=== PATIENT | male | born 1990 | race African-American/Black ===

== ENCOUNTER 2020-02-18 13:27 | Emergency (ER) | payer OTHER, SELFPAY ==
[2020-02-18 13:46] VITALS: BP 134/84; PULSE 102; RESP 20; TEMP 36.4; O2SAT 97
--- NOTE | 2020-02-18 14:11 | ED.SKABFB ---
HPI - Skin/Abscess/Foreign Bdy General Chief complaint: Skin/Abscess/Foreign Body Stated complaint: bump on chest Source: patient Mode of arrival: ambulatory Limitations: no limitations History of Present Illness HPI narrative: This is a 29-year-old male presents with an abscess on his upper mid chest started Tuesday and has progressively worsened it is tender currently there is some minimal drainage patient tried to express some fluid himself with no relief of the of did fluid drainage, it is warm and tender to touch with chills no fevers no significant past medical history. complaint: abscess/boil Onset (ago): day(s) Tetanus up to date: no Location: chest Severity: moderate Quality: aching Pain Consistency: constant Related Data Allergies Allergy/AdvReac Type Severity Reaction Status Date / Time No Known Allergies Allergy Verified 02/18/20 14:12 Review of Systems Review of Systems: All systems reviewed & are unremarkable except as noted in HPI and below PMFSH Past Medical History Medical History Patient denies medical problems Social History Social History Gender identity (if verbalized by the patient): Male Exam Const: General: no acute distress and alert Orientation/consciousness: patient oriented x3 HENMT: Head: normal to inspection Eyes: Conjunctivae: conjunctivae normal Pupils: Equal, round and reactive pupils present EOM: EOMs intact bilaterally Neck: Neck: normal visual inspection, no lymphadenopathy and no meningeal signs Chest: Other: has a 4x4 fluctuant abscess mid upper chest area Resp: Effort & Inspection: normal respiratory effort Auscultation: clear to auscultation bilaterally Cardio: Rhythm: regular rhythm GI: Auscultation: normal bowel sounds : Testes: Testes normal Back/Spine/Pelvis: Back: no CVA tenderness Skin: General skin exam: normal color Wounds: wounds noted Neuro: General: patient oriented x3 and moves all extremities Course Course Emergency Course: area on the chest abscess was prepped with Betadine 3cc of lidocaine 1% injected and 11 blade scalpel used to make an incision to drain fluid / pus from his chest abscess patient tolerated procedure well with a culture obtained as well. Informed patient we will be giving him a update on his tetanus, and IM ceftriaxone injection. Vital Signs Vital signs: Vital Signs Temperature 36.4 C 02/18/20 13:46 Pulse Rate 102 H 02/18/20 13:46 Respiratory Rate 20 02/18/20 13:46 Blood Pressure 134/84 02/18/20 13:46 Pulse Oximetry 97 02/18/20 13:46 Temperature 36.4 C 02/18/20 13:46 Pulse Rate 102 H 02/18/20 13:46 Respiratory Rate 20 02/18/20 13:46 Blood Pressure 134/84 02/18/20 13:46 Pulse Oximetry 97 02/18/20 13:46 Procedures Abscess I/D chest: Date of Incision: 02/18/20 Time of Incision: 14:16 Local Anesthetic: lidocaine 1% Amount of anesthesia used (mL): 3 Technique: incised with #11 blade Amount of fluid expressed (mL): 10 Irrigation: No Packing used?: none I&D Results: Pus and Blood Complications: pain and bleeding Critical Care Time Critical Care Time Critical Care Time: No Discharge Plan Discharge Clinical Impression: Abscess of skin or subcutaneous tissue Patient Disposition: Home, Self-Care Condition: Stable Instructions: Antibiotic Form, Abscess (ED) Additional Instructions: Advised patient to take medicine as prescribed and follow-up with primary care physician within 2 weeks for further evaluation and treatment. Prescriptions: New amoxicillin-pot clavulanate [Augmentin] 500-125 mg tablet 1 tablet PO Q12H Qty: 20 RF: 0 naproxen 500 mg tablet 500 mg PO BID PRN (Reason: pain) Qty: 20 RF: 0 Follow-up/Referrals: UNKNOWN,DOCTOR [Primary Care Provider] - Time of
[2020-02-18] MEDS: cefTRIAXone 1 GM VIAL IM (14:22)
[2020-02-18] MEDS: NEOMYCIN/POLYMYXIN/BACITRACIN OINTMENT PACKET 1 PACKET TOPICAL (14:25)
[2020-02-18] MEDS: LIDOCAINE HCL 1% LOCAL INJ 20 ML VIAL (14:26)
[2020-02-18] MEDS: TETANUS,DIPHTHERIA,AC PERTUSSIS ADULT 0.5 ML (ADACEL) IM (14:26)
[2020-02-18 14:52] VITALS: PULSE 95; RESP 20; O2SAT 98
== END 2020-02-18 14:58 | disposition home or self-care (01) ==
PROVIDERS: Emergency Provider Emergency Medicine
DX: L02.213 Cutaneous abscess of chest wall (principal)
CPT/HCPCS: 10060; 87070; 87205; 90471; 90715; 96372; 99283; J0696

== ENCOUNTER 2020-02-21 15:54 | Emergency (ER) | payer OTHER, SELFPAY ==
[2020-02-21 16:04] VITALS: BP 140/86; PULSE 90; RESP 16; TEMP 36.9; O2SAT 100
--- NOTE | 2020-02-21 16:15 | PC.NURSE ---
patient brought back to ED room 17 with abscess on chest. see triage notes. no change in patient's condition since triage done. alert. oriented. assessments documented.
--- NOTE | 2020-02-21 16:26 | ED.GENADULT ---
HPI - General Adult General Chief complaint: Skin/Abscess/Foreign Body Stated complaint: Cyst on chest Time Seen by Provider: 02/21/20 16:22 Source: patient Mode of arrival: ambulatory Limitations: no limitations History of Present Illness HPI narrative: Pt is here for treatment of an abscess on his chest. He was seen at another facility on Tuesday, they drained it but did not place a drain and started him on Augmentin. Since that time it has grown in size and is full. He denies fever or significant pain unless touched. Neither he, nor his family have history of MRSA abscesses, he denies IV drug use and is otherwise healthy. Onset (ago): day(s) Location: chest (upper strenum) Associated symptoms: denies other symptoms Treatments prior to arrival: NSAID and other (Augmentin) Related Data Allergies Allergy/AdvReac Type Severity Reaction Status Date / Time No Known Allergies Allergy Verified 02/21/20 16:06 Review of Systems Review of Systems: All systems reviewed & are unremarkable except as noted in HPI and below PMFSH Past Medical History Medical History Patient denies medical problems Social History Social History (Updated 02/21/20 @ 16:40 by Mindi Pop PA-C) Smoking status: Never smoker Alcohol intake: current Alcohol use details: occasional Substance use type: does not use Living arrangements: with family Occupation/Education: occupation Additional occupation/education comments: [employer] Gender identity (if verbalized by the patient): Male Exam Const: General: no acute distress and alert Orientation/consciousness: patient oriented x3 HENMT: Head: normal to inspection Eyes: Pupils: Equal, round and reactive pupils present Chest: Chest palpation & inspection: abnormal inspection of the chest (There is a 5X5 cm abscess at left upper sternal border.) Resp: Effort & Inspection: normal respiratory effort Auscultation: clear to auscultation bilaterally Cardio: Rate: regular rate Rhythm: regular rhythm Skin: Other: 5X5 cm flutuant, red abscess left upper sternal border. No open areas. Neuro: General: patient oriented x3 and moves all extremities Extrem: General: normal to inspection Psych: Mental Status: mental status grossly normal Course Course Emergency Course: I/D successful. Will change antibiotic to Septra. Pt instructed to apply warm soaks 4X/day and express material. Also instructed to pull drain out approx 2 cm a day until removed or wound resolved. Does not have primary care physician. Vital Signs Vital signs: Vital Signs Temperature 36.9 C 02/21/20 16:04 Pulse Rate 90 02/21/20 16:04 Respiratory Rate 16 02/21/20 16:04 Blood Pressure 140/86 02/21/20 16:04 Pulse Oximetry 100 02/21/20 16:04 Temperature 36.9 C 02/21/20 16:04 Pulse Rate 90 02/21/20 16:04 Respiratory Rate 16 02/21/20 16:04 Blood Pressure 140/86 02/21/20 16:04 Pulse Oximetry 100 02/21/20 16:04 Procedures Abscess I/D chest: Date of Incision: 02/21/20 Time of Incision: 17:15 Side (if applicable): left (upper sternal border) Local Anesthetic: lidocaine 1% and other anesthetic (EMLA) Amount of anesthesia used (mL): 5 Technique: incised with #11 blade Amount of fluid expressed (mL): 20 Irrigation: No Packing used?: iodoform (1/4 inch approx 12 inches) I&D Results: Pus and Blood Abcess I&D Additional Comments: Area greatly reduced in size. Pt states pain is much better. Medical Decision Making Vital Signs Vital Signs: Vital Signs Temperature 36.9 C 02/21/20 16:04 Pulse Rate 90 02/21/20 16:04 Respiratory Rate 16 02/21/20 16:04 Blood Pressure 140/86 02/21/20 16:04 Pulse Oximetry 100 02/21/20 16:04 Temperature 36.9 C 02/21/20 16:04 Pulse Rate 90 02/21/20 16:04 Respiratory Rate 16 02/21/20 16:04 Blood Pressure 14
[2020-02-21] MEDS: LIDOCAINE HCL 1% LOCAL INJ 20 ML VIAL (17:03)
[2020-02-21] MEDS: LIDOCAINE/PRILOCAINE CREAM 2.5-2.5% TUBE 1 EACH TOPICAL (17:03)
--- NOTE | 2020-02-21 17:05 | PC.NURSE ---
room prepped for I/D. patient aware of current treatment plan. topical lidocaine to site per provider.
--- NOTE | 2020-02-21 17:45 | PC.NURSE ---
I/D done. patient tolerated well. new dressing to chest. bandaid with drainage. changed per patient's request. alert. oriented. PO antibiotic given. reviewed wound care with patient.
--- NOTE | 2020-02-21 18:06 | ED.GENADULT ---
HPI - General Adult General Chief complaint: Skin/Abscess/Foreign Body Stated complaint: Cyst on chest Time Seen by Provider: 02/21/20 16:22 Source: patient Mode of arrival: ambulatory Limitations: no limitations History of Present Illness HPI narrative: Patient has a large, 5 x 5 cm fluctuant mass in the left upper sternal border. It was treated at another hospital on Tuesday, started on Augmentin after an I&D without drain placement. The mass grew since the initial I and D, patient states that it did open and drain a small amount of material spontaneously. He has been taking his medication as prescribed. He denies fever. Onset (ago): day(s) Location: chest (upper strenum) Associated symptoms: denies other symptoms Treatments prior to arrival: NSAID and other (Augmentin) Related Data Allergies Allergy/AdvReac Type Severity Reaction Status Date / Time No Known Allergies Allergy Verified 02/21/20 16:06 Review of Systems Review of Systems: All systems reviewed & are unremarkable except as noted in HPI and below PMFSH Past Medical History Medical History Patient denies medical problems Social History Social History (Updated 02/21/20 @ 16:40 by Mindi Pop PA-C) Smoking status: Never smoker Alcohol intake: current Alcohol use details: occasional Substance use type: does not use Living arrangements: with family Occupation/Education: occupation Additional occupation/education comments: [employer] Gender identity (if verbalized by the patient): Male Exam Const: General: no acute distress and alert Orientation/consciousness: patient oriented x3 HENMT: Head: normal to inspection Eyes: Pupils: Equal, round and reactive pupils present Neck: Neck: no lymphadenopathy Resp: Effort & Inspection: normal respiratory effort Auscultation: clear to auscultation bilaterally Cardio: Rate: regular rate Rhythm: regular rhythm Skin: Wounds: wounds noted (5X5 cm flucuant mass LUSB. Erythematous.) Neuro: General: patient oriented x3 and moves all extremities Psych: Mental Status: mental status grossly normal Course Course Emergency Course: Will change antibiotic to Septra DS. Vital Signs Vital signs: Vital Signs Temperature 36.9 C 02/21/20 16:04 Pulse Rate 90 02/21/20 16:04 Respiratory Rate 16 02/21/20 16:04 Blood Pressure 140/86 02/21/20 16:04 Pulse Oximetry 100 02/21/20 16:04 Temperature 36.9 C 02/21/20 16:04 Pulse Rate 90 02/21/20 16:04 Respiratory Rate 16 02/21/20 16:04 Blood Pressure 140/86 02/21/20 16:04 Pulse Oximetry 100 02/21/20 16:04 Procedures Abscess I/D chest: Date of Incision: 02/21/20 Time of Incision: 16:30 Side (if applicable): left Local Anesthetic: lidocaine 1% and other anesthetic (EMLA) Amount of anesthesia used (mL): 5 Technique: incised with #11 blade Amount of fluid expressed (mL): 15 Irrigation: No Packing used?: iodoform I&D Results: Pus and Blood Medical Decision Making Vital Signs Vital Signs: Vital Signs Temperature 36.9 C 02/21/20 16:04 Pulse Rate 90 02/21/20 16:04 Respiratory Rate 16 02/21/20 16:04 Blood Pressure 140/86 02/21/20 16:04 Pulse Oximetry 100 02/21/20 16:04 Temperature 36.9 C 02/21/20 16:04 Pulse Rate 90 02/21/20 16:04 Respiratory Rate 16 02/21/20 16:04 Blood Pressure 140/86 02/21/20 16:04 Pulse Oximetry 100 02/21/20 16:04 Discharge Plan Discharge Clinical Impression: Abscess Patient Disposition: Home, Self-Care Condition: Improved Instructions: Antibiotic Form, Abscess (ED) Additional Instructions: Stop previously prescribed antibiotic and start Bactrim DS. complete antibiotics as prescribed. May take Naproxen or Ibuprofen for pain. Pull 2-3 cm of drain out daily. Apply warm soaks to wound 3-4 x/day until drain is out. Cover with
--- NOTE | 2020-02-21 18:20 | PC.NURSE ---
dressing changed prior to discharge. referral list for PCP given to patient. discharge instructions reviewed with patient.
== END 2020-02-21 18:17 | disposition home or self-care (01) ==
PROVIDERS: Emergency Provider Emergency Medicine
DX: L02.213 Cutaneous abscess of chest wall (principal)
CPT/HCPCS: 10061; 99283; A9270

== ENCOUNTER 2020-11-09 15:19 | Emergency (ER) | payer OTHER, SELFPAY ==
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
[2020-11-09 16:23] VITALS: BP 121/89; PULSE 74; RESP 18; TEMP 37.2; O2SAT 99
[2020-11-09] MEDS: DEXAMETHASONE 4 MG TABLET 12 MG PO (16:40)
[2020-11-09] MEDS: BACLOFEN 10 MG TABLET 20 MG PO (16:40)
[2020-11-09] MEDS: KETOROLAC (*BKC) 60 MG/2 ML VIAL IM (16:40)
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
== END 2020-11-09 17:34 | disposition home or self-care (01) ==
PROVIDERS: Emergency Provider Emergency Medicine
DX: M54.2 Cervicalgia (principal)
CPT/HCPCS: 72125; 96372; 99283; 99284; A9270; J1885; J8540

== ENCOUNTER 2021-05-03 13:16 | Emergency (ER) | payer OTHER, SELFPAY ==
--- NOTE | ~2021-05-03 | XR_ITS ---
XR lumbar spine 2-3V 05/03/2021 14:12 Indication: Low back pain Procedure: 3 views lumbar spine Comparison: No prior studies for comparison. Findings: Vertebral body heights are maintained. No fracture, subluxation or dislocation. No evidence for spondylolisthesis. There is mild disc narrowing at L3-4, L4-5 and L5-S1. Impression: 1: No acute abnormality of the lumbar spine. 2: Mild lumbar spondylosis. Reviewed, dictated and finalized at location A. [employer] OFFICER Impression: 1: No acute abnormality of the lumbar spine. 2: Mild lumbar spondylosis.
--- NOTE | ~2021-05-03 | XR_ITS ---
XR foot LT min 3V 05/03/2021 13:41 INDICATION: Left foot pain PROCEDURE: 4 views left foot COMPARISON: No prior studies for comparison. FINDINGS: Fracture, dislocation or subluxation is not identified. Lisfranc joint intact. The soft tis sues appear within normal limits. No foreign bodies are identified. IMPRESSION: 1: NO ACUTE BONE OR JOINT ABNORMALITY IDENTIFIED. Reviewed, dictated and finalized at location A. 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
[2021-05-03 13:20] VITALS: BP 147/86; PULSE 78; RESP 16; TEMP 36.4; O2SAT 100
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
[2021-05-03] MEDS: IBUPROFEN 400 MG TABLET 800 MG PO (14:21)
== END 2021-05-03 15:04 | disposition home or self-care (01) ==
PROVIDERS: Emergency Provider Nurse Practitioner
DX: S96.912A Strain of unspecified muscle and tendon at ankle and foot level, left foot, initial encounter (principal); M47.816 Spondylosis without myelopathy or radiculopathy, lumbar region; W18.09XA Striking against other object with subsequent fall, initial encounter
CPT/HCPCS: 72100; 73630; 99283; A9270

== ENCOUNTER 2021-06-29 13:33 | Outpatient (RCR) | payer OTHER, SELFPAY ==
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
== END 2021-07-16 13:44 | disposition home or self-care (01) ==
LOC: CHSPT 13:33
DX: M54.50 Low back pain, unspecified (principal)
CPT/HCPCS: 97012; 97014; 97110; 97140; 97161; G0283

== ENCOUNTER 2025-02-06 03:35 | Emergency (ER) | payer OTHER, SELFPAY ==
--- NOTE | ~2025-02-06 | US_ITS ---
ULTRASOUND ABDOMEN LIMITED (RIGHT UPPER QUADRANT) Clinical History: c/f cholecystitis on CT; equivocal Comparison: CT earlier same day Technique: Right upper quadrant sonography Findings: Liver: Normal size. Normal echotexture. No intrahepatic biliary ductal dilatation. Normal hepatopedal flow main portal vein. Common Duct: Normal caliber. 3 mm. Gallbladder: Stones. Wall thickening. No pericholecystic fluid. Pancreas: Largely obscured by bowel gas. IMPRESSION: 1. Worrisome for acute cholecystitis. If clinical ambiguity, recommend HIDA scan. Reviewed, dictated and finalized at location R. IMPRESSION: 1. Worrisome for acute cholecystitis. If clinical ambiguity, recommend HIDA sc an.
--- NOTE | ~2025-02-06 | CT_ITS ---
EXAMINATION: CT abdomen pelvis w con DATE: 02/06/2025 04:41 INDICATION: Midline abdominal pain. TECHNIQUE: Computed tomography (CT) of the abdomen and pelvis was performed with 100 mL Omnipaque 350 intravenous contrast. Automated exposure control and iterative reconstruction technique were employed. The dose-length product was 508.12 mGy-cm. COMPARISON: None. FINDINGS: The visualized portions of lung bases demonstrate mild atelectasis. There are peripheral airspace opacities in anterobasal segment right lower lobe. No pleural effusion. The heart size is normal. No pericardial effusion. There is a small sliding hiatal hernia. The liver is normal. The gallbladder is distended and contains gallstones. Gallbladder wall thickening is noted. The spleen, pancreas, adrenal glands, and kidneys are normal. The bladder is distended. There are no dilated loops of bowel. The appendix is normal. There are no pathologically enlarged lymph nodes. There is no free intraperitoneal fluid. There is an umbilical hernia containing fat. There is mild lumbar spondylosis. There are old healed left rib fractures. IMPRESSION: 1. Acute cholecystitis. 2. Airspace opacities in anterobasal segment right lower lobe, consistent with atelectasis versus pneumonia. Reviewed, dictated and finalized at location E.
[2025-02-06 03:48] VITALS: BP 184/116; PULSE 68; RESP 16; TEMP 36.7; O2SAT 99
[2025-02-06 04:02] LABS: Hematocrit 44.4 % (42.0-52.0); Hemoglobin 15.0 g/dL (14.0-18.0); Immature Granulocyte Percent A 0.4 % (0-0.5); Lymphocytes Absolute Auto 0.83 K/mm3 (0.9-3.2); Mean Corpuscular HGB Conc 33.8 g/dl (32-36); Mean Corpuscular Hemoglobin 28.1 pg (26-34); Mean Corpuscular Volume 83.1 fl (80-100); Nucleated Red Blood Cells Absolute Auto 0.000 K/mm3 (0.0-0.012); Nucleated Red Blood Cells Perc 0.0 % (0.0-0.2); Platelet Count Result 252 k/mm3 (150-375); Red Blood Count 5.34 M/mm3 (4.6-6.20); White Blood Count 7.9 K/mm3 (4.5-10.0)
--- OUTSIDE RECORDS SUMMARY | 2025-02-06 04:04 | XMS_ITS | Encounter Summary ---
Author Organization [facility] Address [address] [place] [address] Care Team Providers Care Chemical Mixer Name Role Phone Unavailable Primary Care Provider Unavailabl e Encounter Details Date Type Department Care Team (Late st Contact Info) Description 02/05/2025 External Device Data ST[place] ABSTRACTION Provider, Abstract NO ADDRESS ON FILE Social History Tobacco Use Types Packs/Day Years Used Date Smoking Tobacco: Never Smokeless Tobacco: Never Alcohol Use Standard Drinks/Week Comments Yes 15 (1 standard drink = 0.6 oz pu re alcohol) Feeling Safe Answer Date Recorded Are you in a relationship wi th someone who hurts you emotionally and/or physically? No 04/16/2024 Food Insecurity Answer Date Recorded Patient needs follow up regardin 08/25/2024 Transportation Needs Answer Date Record ed Patient needs follow up regardin 08/25/2024 Housing Stability Answer Date Recorded Social/Environmental Concerns No concerns Utility Needs Answer Date Recorded Patient needs follow up regardin 08/25/2024 Education Answer Date Recorded What is the highest level of school you have completed or the highest degree you have received? High school graduate 04/16/2024 Sex and Gender Information Value Date Recorded Sex Assigned at Not on file Legal Sex Male 5:53 PM CDT Gender Identity Not on file Sexual Orientation Not on file documented as of this encounter Plan of Treatment Not on file documented as of this encounter Visit Diagnoses Not on filedocumented in this encounter
--- OUTSIDE RECORDS SUMMARY | 2025-02-06 04:04 | XMS_ITS | Clinical Summary ---
Author Organization [facility] [address] Address [address] [place] [address] Phone Care Team Providers Care Linux Unix System Administrator Name Role Phone Carol Sanchez NP Primary Care Provider [phone] Allergies No known active allergies Medications No known medications Active Problems No known active problems Social History Tobacco Use Types Packs/Day Years Used Date Smoking Tobacco: Never Assessed Personal Safety Answer Date Recorded Getting School Help Needed Not on file 06/19 Sex and Gender Information Value Date Recorded Sex Assigned at Not on file Legal Sex Male 1:41 PM [employer] Gender Identity Not on file Sexual Orientation Not on file Last Filed Vital Signs Vital Sign Reading Time Taken Comments Blood Pressure - - Pulse - - Temperature - - Respiratory Rate - - Oxygen Saturation - - Inhaled Oxygen Concentration - - Weight 72.6 kg (160 lb) 07/27/2021 9:05 AM CDT Height 175.3 cm (5' 9) 07/27/2021 9:05 AM CDT Body Mass Index 23.63 07/27/2021 9:05 AM CDT Plan of Treatment Not on file Insurance [facility] Care Teams Linux Unix System Administrator Relationship Specialty Start Date End Date Carol Sanchez NP [address] [place] [id number] PCP - General Nurse Practitioner 05/18/21
[2025-02-06 04:14] LABS: Alanine Aminotransferase 14 U/L (6-50); Albumin Level 4.9 g/dL (3.5-5.1); Alkaline Phosphatase 90 U/L (38-126); Anion Gap 9 mmol/L (4-12); Aspartate Amino Transferase 22 U/L (17-59); Bilirubin,Total 0.9 mg/dL (0.2-1.3); Blood Urea Nitrogen 4 mg/dL (9-20); Calcium 9.6 mg/dL (8.4-10.2); Carbon Dioxide 28 mmol/L (22-30); Chloride 96 mmol/L (98-107); Estimated CRCL calculation 95 ml/min; Estimated Glomerular Filt Rate > 60; Glucose 118 mg/dL (65-110); Lipase 56 U/L (23-300); Potassium 3.7 mmol/L (3.4-5.0); Sodium 133 mmol/L (137-145); Total Protein 8.9 g/dL (6.3-8.2)
--- NOTE | 2025-02-06 05:09 | ED.ABDPAIN ---
HPI - Abdominal Pain General Chief Complaint: Abdominal Pain <Xochilt Frank MD - Last Filed: 02/06/25 06:08> Stated Complaint: Abd pain and nausea <Xochilt Frank MD - Last Filed: 02/06/25 06:08> Time Seen by Provider: 02/06/25 03:52 <Xochilt Frank MD - Last Filed: 02/06/25 06:08> History of Present Illness HPI narrative: Patient is a 34-year-old male who presents emergency department this evening complaining of nausea and epigastric abdominal pain. States dad started last week, patient took some Pepto-Bismol and states that over the weekend his symptoms resolved. States that it has now returned and he finally decided to come to the emergency department for further evaluation. Denies any history of peptic ulcer disease or GERD. Denies any similar symptoms in the past. Denies any diarrhea or constipation stating that he has regular bowel movements. No additional symptoms or concerns at this time. <Xochilt Frank MD - Last Filed: 02/06/25 06:08> Related Data Allergies/Adverse Reactions: Allergies Allergy/AdvReac Type Severity Reaction Status Date / Time No Known Allergies Allergy Verified 02/06/25 03:36 <Xochilt Frank MD - Last Filed: 02/06/25 06:08> Review of Systems Review of Systems: All systems are reviewed and are negative unless stated otherwise in the HPI. <Xochilt Frank MD - Last Filed: 02/06/25 06:08> PMFSH Past Medical History Medical History: Medical History No pertinent past medical history Patient denies medical problems <Xochilt Frank MD - Last Filed: 02/06/25 06:08> Surgical History Surgical History: Surgical History No pertinent past surgical history <Xochilt Frank MD - Last Filed: 02/06/25 06:08> Family History Family History: Family History Mother No pertinent past medical history <Xochilt Frank MD - Last Filed: 02/06/25 06:08> Social History Social History: Social History Smoking status: Never smoker Alcohol intake: current Alcohol use details: occasional Substance use type: does not use Living arrangements: with family Occupation/Education: occupation Additional occupation/education comments: [employer] Gender identity (if verbalized by the patient): Male Sexual Orientation (if Verbalized by the Patient): Straight or Heterosexual Spiritual care concerns: No <Xochilt Frank MD - Last Filed: 02/06/25 06:08> Exam Narrative: General: Alert, awake, afebrile, in no acute distress. HEENT: PERRL, no rhinorrhea, no post nasal drip, oropharynx clear. Neck: Trachea midline, no JVD, no lymphadenopathy. Cardiovascular: Regular rate and rhythm, no murmurs, rubs or gallops, no peripheral edema. Respiratory: Clear to auscultation bilaterally, no tachypnea, no wheezing, no rhonchi, no rubs, no respiratory distress. Abdomen: Soft, nontender, nondistended, no rebound, no guarding, no peritoneal signs. Musculoskeletal: No joint swelling or deformity, normal muscle tone. Skin: No rashes or petechia, no signs of infection. Psychiatric: Alert and oriented, normal behavior and judgment for situation. Neurological: Alert and oriented to person, place, and time. Follows all commands. No focal deficits, speech is clear and fluent. <Xochilt Frank MD - Last Filed: 02/06/25 06:08> Course Course Emergency Course: Patient signed out to me pending CT scan. This is equivocal although concerning for acute cholecystitis. Right upper quadrant ultrasound is ordered though will be performed after US gets here, approximately 30-90 minutes. Patient was assessed as ultrasound was about to be performed. He reported that he still had abdominal pain. Initially patient had only been given 2 mg morphine, unclear why. 4 mg morphine ordered. When patient is reassessed given the findings of the ultrasound, he states his pain is better although not completely resolved. He describes it as a discomfort. Patient has 2 young children with him. When I discussed that often the diagnosis of acute cholecystitis is indication for surgical operative removal, he does note that this is the 1st time this has ever happened before. He initially states his last oral intake was on Tuesday but then he describes various things that he has eaten including on Tuesday some prabhakar and a donut. He also discusses eating fish and trying to eat drink a soda. Not on anticoagulation. No underlying medical conditions for which he takes any medications. 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 He states no and says that it is because this is the first time this has ever happened and he overall has never had issues like this before. I did discuss the case with on-call general surgeon Dr. Tran and we reviewed the interpretation of the studies (our radiologists have indicated acute cholecystitis on their interpretation of CT). Dr. Tran did note that if patient is otherwise pain free and without a white count or elevated liver enzymes, it could be reasonable to discharge him with Rx for antibiotic, either Augmentin versus cipro versus Levaquin x1 week and have him call to make an appointment to be seen in clinic this week - potentially today versus there is even availability tomorrow. First dose given in the ED. Advised on low fat diet. Also DC with Rx for ketorolac. <Briseyda Wen MD - Last Filed: 02/06/25 09:57> Vital Signs Vital signs: Vital Signs Temperature 98.0 F 02/06/25 03:48 Pulse Rate 68 02/06/25 03:48 Respiratory Rate 16 02/06/25 03:48 Blood Pressure 184/116 H 02/06/25 03:48 Pulse Oximetry 99 02/06/25 03:48 Oxygen Delivery Room Air 02/06/25 03:48 Temperature 98.0 F 02/06/25 03:48 Pulse Rate 90 02/06/25 08:30 Respiratory Rate 16 02/06/25 08:30 Blood Pressure 128/81 02/06/25 08:30 Pulse Oximetry 100 02/06/25 08:30 Oxygen Delivery Room Air 02/06/25 03:48 <Xochilt Frank MD - Last Filed: 02/06/25 06:08> Vital Signs Temperature 98.0 F 02/06/25 03:48 Pulse Rate 68 02/06/25 03:48 Respiratory Rate 16 02/06/25 03:48 Blood Pressure 184/116 H 02/06/25 03:48 Pulse Oximetry 99 02/06/25 03:48 Oxygen Delivery Room Air 02/06/25 03:48 Temperature 98.0 F 02/06/25 03:48 Pulse Rate 90 02/06/25 08:30 Respiratory Rate 16 02/06/25 08:30 Blood Pressure 128/81 02/06/25 08:30 Pulse Oximetry 100 02/06/25 08:30 Oxygen Delivery Room Air 02/06/25 03:48 <Briseyda Wen MD - Last Filed: 02/06/25 09:57> MDM - Abdominal Pain MDM Narrative Medical decision making narrative: The patient was evaluated by myself in the emergency department. History is obtained from patient who is an independent historian and physical exam was performed. External medical records were reviewed at this time. IV was established and pertinent tests were ordered. Patient was administered 2 mg IV morphine, 4 mg IV Zofran and 20 mg of IV Pepcid. Laboratory results obtained revealing no acute process. Imaging studies obtained included CT abdomen pelvis with IV contrast which is currently pending. Differential diagnosis considerations include ulcer disease, gastritis, GERD, pancreatitis, cholecystitis, constipation. Comorbidities impacting this visit include none. I have evaluated and discussed social determinants of health with the patient that could potentially impact subsequent diagnosis and treatment plans. Patient was signed out to AM ED physician pending CT scan. <Xochilt Frank MD - Last Filed: 02/06/25 06:08> Lab Data Result diagrams: 02/06/25 03:57 02/06/25 03:57 <Xochilt Frank MD - Last Filed: 02/06/25 06:08> Labs: Lab Results 02/06/25 02/06/25 Range/Units 03:57 05:22 WBC 7.9 (4.5-10.0) K/mm3 RBC 5.34 (4.6-6.20) M/mm3 Hgb 15.0 (14.0-18.0) g/dL Hct 44.4 (42.0-52.0) % MCV 83.1 (80-100) fl MCH 28.1 (26-34) pg MCHC 33.8 (32-36) g/dl RDW 12.3 (11.5-14.5) % Plt Count 252 (150-375) k/mm3 MPV 9.7 (7.4-10.4) fl Immature Gran % (Auto) 0.4 (0-0.5) % Neut % (Auto) 79.5 H (45.5-73.1) % Lymph % (Auto) 10.5 L (18.3-44.2) % [place] % (Auto) 8.8 H (2.6-8.5) % Eos % (Auto) 0.5 (0-4.4) % Baso % (Auto) 0.3 (0.2-1.2) % Lymph # (Auto) 0.83 L (0.9-3.2) K/mm3 [place] # (Auto) 0.7 H (0.1-0.6) K/mm3 Eos # (Auto) 0.0 (0-0.3) K/mm3 Baso # (Auto) 0.0 (0.0-0.1) K/mm3 Abs Immat Gran (auto) 0.03 (0.00-0.031) K/mm3 Absolute Neuts (auto) 6.3 (1.3-6.7) K/mm3 Absolute Nucleated RBC 0.000 (0.0-0.012) K/mm3 Nucleated RBC % 0.0 (0.0-0.2) % Sodium 133 L (137-145) mmol/L Potassium 3.7 (3.4-5.0) mmol/L Chloride 96 L (98-107) mmol/L Carbon Dioxide 28 (22-30) mmol/L Anion Gap 9 (4-12) mmol/L BUN 4 L (9-20) mg/dL Creatinine 0.98 (0.7-1.3) mg/dL Estim Creat Clear Calc 95 ml/min Estimated GFR > 60 (59 - ) Glucose 118 H (65-110) mg/dL Calcium 9.6 (8.4-10.2) mg/dL Magnesium 1.9 (1.6-2.3) mg/dL Total Bilirubin 0.9 (0.2-1.3) mg/dL AST 22 (17-59) U/L ALT 14 (6-50) U/L Alkaline Phosphatase 90 (38-126) U/L Total Protein 8.9 H (6.3-8.2) g/dL Albumin 4.9 (3.5-5.1) g/dL Lipase 56 (23-300) U/L Urine Color Yellow (Yellow) Urine Appearance Clear (Clear) Urine pH 6.0 (5.0-9.0) Ur Specific [place] 1.013 (1.001-1.035) Urine Protein Negative (Negative) mg/dL Urine Glucose (UA) Negative (Negative) mg/dL Urine Ketones Trace H (Negative) mg/dL Ur Blood (Man) Negative (Negative) Urine Nitrate Negative (Negative) Urine Bilirubin Negative (Negative) Urine Urobilinogen 1.0 (<2.0) mg/dL Leukocyte Esterase Rfl 2+ H (Negative) S[place]NCHEZ/UL Urine RBC 0-2 (0-2) /hpf Urine WBC 6-10 H (0-3) /hpf Ur Squamous Epith Cells None seen (Few) /hpf Urine Bacteria 4+ H /hpf Urine Casts 0-2 <Xochilt Frank MD - Last Filed: 02/06/25 06:08> Lab Results 02/06/25 02/06/25 Range/Units 03:57 05:22 WBC 7.9 (4.5-10.0) K/mm3 RBC 5.34 (4.6-6.20) M/mm3 Hgb 15.0 (14.0-18.0) g/dL Hct 44.4 (42.0-52.0) % MCV 83.1 (80-100) fl MCH 28.1 (26-34) pg MCHC 33.8 (32-36) g/dl RDW 12.3 (11.5-14.5) % Plt Count 252 (150-375) k/mm3 MPV 9.7 (7.4-10.4) fl Immature Gran % (Auto) 0.4 (0-0.5) % Neut % (Auto) 79.5 H (45.5-73.1) % Lymph % (Auto) 10.5 L (18.3-44.2) % [place] % (Auto) 8.8 H (2.6-8.5) % Eos % (Auto) 0.5 (0-4.4) % Baso % (Auto) 0.3 (0.2-1.2) % Lymph # (Auto) 0.83 L (0.9-3.2) K/mm3 [place] # (Auto) 0.7 H (0.1-0.6) K/mm3 Eos # (Auto) 0.0 (0-0.3) K/mm3 Baso # (Auto) 0.0 (0.0-0.1) K/mm3 Abs Immat Gran (auto) 0.03 (0.00-0.031) K/mm3 Absolute Neuts (auto) 6.3 (1.3-6.7) K/mm3 Absolute Nucleated RBC 0.000 (0.0-0.012) K/mm3 Nucleated RBC % 0.0 (0.0-0.2) % Sodium 133 L (137-145) mmol/L Potassium 3.7 (3.4-5.0) mmol/L Chloride 96 L (98-107) mmol/L Carbon Dioxide 28 (22-30) mmol/L Anion Gap 9 (4-12) mmol/L BUN 4 L (9-20) mg/dL Creatinine 0.98 (0.7-1.3) mg/dL Estim Creat Clear Calc 95 ml/min Estimated GFR > 60 (59 - ) Glucose 118 H (65-110) mg/dL Calcium 9.6 (8.4-10.2) mg/dL Magnesium 1.9 (1.6-2.3) mg/dL Total Bilirubin 0.9 (0.2-1.3) mg/dL AST 22 (17-59) U/L ALT 14 (6-50) U/L Alkaline Phosphatase 90 (38-126) U/L Total Protein 8.9 H (6.3-8.2) g/dL Albumin 4.9 (3.5-5.1) g/dL Lipase 56 (23-300) U/L Urine Color Yellow (Yellow) Urine Appearance Clear (Clear) Urine pH 6.0 (5.0-9.0) Ur Specific [place] 1.013 (1.001-1.035) Urine Protein Negative (Negative) mg/dL Urine Glucose (UA) Negative (Negative) mg/dL Urine Ketones Trace H (Negative) mg/dL Ur Blood (Man) Negative (Negative) Urine Nitrate Negative (Negative) Urine Bilirubin Negative (Negative) Urine Urobilinogen 1.0 (<2.0) mg/dL Leukocyte Esterase Rfl 2+ H (Negative) S[place]NC[place]Z/UL Urine RBC 0-2 (0-2) /hpf Urine WBC 6-10 H (0-3) /hpf Ur Squamous Epith Cells None seen (Few) /hpf Urine Bacteria 4+ H /hpf Urine Casts 0-2 <Briseyda Wen MD - Last Filed: 02/06/25 09:57> Imaging Data Radiologist's impression: ITS Impressions Abdomen/Pelvis CT 02/06/25 06:52 IMPRESSION: 1. Acute cholecystitis. 2. Airspace opacities in anterobasal segment right lower lobe, consistent with atelectasis versus pneumonia. Abdomen Ultrasound 02/06/25 08:20 IMPRESSION: 1. Worrisome for acute cholecystitis. If clinical ambiguity, recommend HIDA scan. <Xochilt Frank MD - Last Filed: 02/06/25 06:08> ITS Impressions Abdomen/Pelvis CT 02/06/25 06:52 IMPRESSION: 1. Acute cholecystitis. 2. Airspace opacities in anterobasal segment right lower lobe, consistent with atelectasis versus pneumonia. Abdomen Ultrasound 02/06/25 08:20 IMPRESSION: 1. Worrisome for acute cholecystitis. If clinical ambiguity, recommend HIDA scan. CT Abd & Pelvis with Contrast Stat Rad: Cholelithiasis. Marked thickening of the gallbladder wall with pericholecystic fluid. This concerning for acute cholecystitis. Solid organs are within normal limits. No bowel obstruction. Normal appendix. No fracture. No incidental findings. <Briseyda Wen MD - Last Filed: 02/06/25 09:57> Discharge Plan Discharge Clinical Impression: Nausea, Epigastric abdominal pain, Acute cholecystitis <Xochilt Frank MD - Last Filed: 02/06/25 06:08> Patient Disposition: Home <Xochilt Frank MD - Last Filed: 02/06/25 06:08> Condition: Stable <Xochilt Frank MD - Last Filed: 02/06/25 06:08> Instructions: Antibiotic Form, Cholecystitis (ED), Low Fat Diet (ED), Acute Nausea and Vomiting (DC), Epigastric Pain (ED) <Xochilt Frank MD - Last Filed: 02/06/25 06:08> Additional Instructions: You received your 1st dose of antibiotic in the emergency department. Take the rest of the course. You can use the ketorolac/Toradol to help with pain although this is an NSAID so do not take any other NSAIDs such as ibuprofen, Motrin, Advil, Aleve etc.. If you have nausea or vomiting, the oral disintegrating tablets of ondansetron/Zofran may help. Please call the general surgery clinic number to make an appointment for a later this week with Dr Tran, possibly today or tomorrow if not later in the week. Do not hesitate to return to the emergency department with any new, worsening, or unmanaged symptoms as that would likely indicate that you would need surgical removal. <Xochilt Frank MD - Last Filed: 02/06/25 06:08> Patient Language: [place] <Xochilt Frank MD - Last Filed: 02/06/25 06:08> Prescriptions: New ketorolac 10 mg tablet 10 mg PO Q8H PRN (Reason: pain) 5 Days Qty: 14 0RF Rx Instructions: maximum total duration of 5 days from all oral, intranasal, or parenteral formulations; first dose given in ED ondansetron 4 mg tablet,disintegrating 4 mg PO Q8H PRN (Reason: nausea and vomiting) Qty: 7 0RF amoxicillin-pot clavulanate 875-125 mg tablet 1 tablet PO Q12H 7 Days Qty: 13 0RF Rx Instructions: first dose in ED 10/15 AM No Action dexamethasone 4 mg tablet 8 mg PO DAILY Qty: 10 0RF baclofen 20 mg tablet 20 mg PO BID PRN (Reason: neck discomfort) Qty: 10 0RF ibuprofen 800 mg tablet 800 mg PO TID PRN (Reason: pain) Qty: 15 0RF cyclobenzaprine 10 mg tablet 10 mg PO TID PRN (Reason: muscle spasm) Qty: 15 0RF <Xochlit Frank MD - Last Filed: 02/06/25 06:08> Follow-up/Referrals: PHYSICIAN,AURICULAR DETOXIFICATION SPECIALIST [Primary Care Provider, Internal Medicine] Ravinder Tran MD [Physician, General Surgery] <Xochilt Frank MD - Last Filed: 02/06/25 06:08> Stand Alone Forms: Work/School Release IP <Xochlit Frank MD - Last Filed: 02/06/25 06:08> Time of Disposition: 09:56 <Xochilt Frank MD - Last Filed: 02/06/25 06:08> 09:56 <Briseyda Wen MD - Last Filed: 02/06/25 09:57>
[2025-02-06] MEDS: FAMOTIDINE 20 MG/2 ML VIAL IV PUSH (05:21)
[2025-02-06] MEDS: MORPHINE SULFATE (*CRX) 4 MG/ML INJ 2 MG IV PUSH (05:21)
[2025-02-06] MEDS: ONDANSETRON INJ 4 MG/2 ML VIAL IV PUSH (05:21)
[2025-02-06 05:30] VITALS: BP 146/89; PULSE 74; RESP 16; O2SAT 95
[2025-02-06 05:43] LABS: Add Urine Microscopic? YES; Appearance Urine Clear (Clear); Glucose Urine UA Negative (Negative); Leukocyte Esterase Ur 2+ LEU/UL (Negative); Nitrate Urine Negative (Negative); Non Pathogenic Casts 0-2; Specific Grav Ur 1.013 (1.001-1.035)
[2025-02-06 06:00] VITALS: BP 132/94; PULSE 71; RESP 15; O2SAT 99
[2025-02-06 06:27] LABS: Magnesium 1.9 mg/dL (1.6-2.3)
[2025-02-06 06:30] VITALS: BP 137/90; PULSE 75; RESP 17; O2SAT 100
[2025-02-06 06:45] VITALS: BP 139/96; PULSE 79; RESP 16; O2SAT 99
[2025-02-06] MEDS: MORPHINE SULFATE (*CRX) 4 MG/ML INJ IV PUSH (08:29)
[2025-02-06 08:30] VITALS: BP 128/81; PULSE 90; RESP 16; O2SAT 100
[2025-02-06] MEDS: KETOROLAC 15 MG/ML VIAL (*BKC) IV PUSH (10:06)
== END 2025-02-06 10:05 | disposition home or self-care (01) ==
PROVIDERS: Emergency Medicine; Emergency Provider Student in an Organized Health Care Education/Training Program
DX: K81.0 Acute cholecystitis (principal); R91.8 Other nonspecific abnormal finding of lung field
CPT/HCPCS: 36415; 74177; 76705; 80053; 81001; 83690; 83735; 85025; 87077; 87086; 87186; 96374; 96375; 96376; 99284; A9270; J1885; J2270; J2405; Q9967